=== PATIENT | male | born 1995 | race Caucasian/White ===

== ENCOUNTER 2016-10-17 23:05 | Observation (INO) | payer OTHER ==
[~2016-10-17] VITALS: Ht 167.6 cm; Wt 89.8 kg
[~2016-10-17 23:05] MED LIST: EP1A SC; LORA10TA7 PO; MULT-974 PO; PRD20T PO
--- OUTSIDE RECORDS SUMMARY | 2016-10-17 23:11 | XMS REPORT | Continuity of Care Document ---
Author Author [facility] Organization [facility] Address Unknown Phone Unavailable Care Team Providers Care Vehicle Body Sander Name Role Phone NO, LOCAL PHYSICIAN PCP Unavailable Insurance Providers Payer Name Policy Number Subscriber Name Relationship [facility] [id number] Denise Schwartz 18 Self / Same As Patient Advance Directives Directive Response Recorded Date/Time Advance Directives No 09/11/14 2:43am Health Care Power of Therapy Teacher No 09/11/14 2:43am Organ Donor Yes 09/11/14 2:43am Resuscitation Status Full Code 09/11/14 2:43am Chief Complaint and Reason for Visit Chief Complaint ANAPHYLAXIS W/ANGIOEDEMA & URTICARIA;NUT ALLERGY Reason for Visit Urticaria Angioedema Nut allergy Problems Medical Problems Problem Onset Date Status Urticaria Unknown Active Angioedema Unknown Active Nut allergy Unknown Active Medications Medication Dose Route Sig Days/Qty Instructions Order Date Discontinued Date Status Multivitamin 2 Tab PO DAILY 09/11/14 Active Epinephrine Hcl 0.3 Mg SC EVERY 15 MINUTES PRN DYSPNEA 1 Qty 09/11/14 Active Prednisone 20 Mg PO TWICE A DAY 3 Days 09/11/14 Active Loratadine 10 Mg PO DAILY 30 Qty 09/11/14 Active Social History Social History Problem Response Recorded Date/Time Alcohol Use Regular Use 09/11/2014 2:44am Recreational Drug Use No 09/11/2014 2:44am Recent Foreign Travel No 09/11/2014 2:48am Recent Infectious Disease Exposure No 09/11/2014 2:44am Hospitalization with Isolation Denies 09/11/2014 3:06pm Sexually Transmitted Disease No 09/11/2014 2:44am Smoking Status Never a Smoker 09/11/2014 2:45am Query Response Start Date Stop Date Smoking Status Never a Smoker Hospital Discharge Instructions No hospital discharge instructions. Plan of Care Discharge Date 09/11/14 1:35pm Disposition 30 STILL A PATIENT Instructions/Education Provided Anaphylaxis (GEN) Prescriptions See Medications Section Functional Status Query Response Date Recorded Comprehension Ability Understands Concepts September 11, 2014 12:00pm Allergies, Adverse Reactions, Alerts Allergen Type Severity Reaction Status Last Updated cashew Allergy Severe Active 09/11/14 lobster Allergy Severe Active 09/11/14 Immunizations No immunization records. Vital Signs Acute Vital Signs Vital Response Date/Time Temperature (Fahrenheit) 98.6 degrees F (97.6 - 99.5) Temperature (Calculated Celsius) 37.24735 degrees C (36.4 - 37.5) Temperature Source Temporal Pulse Rate (adult) 80 bpm (60 - 90) Pulse Rate (Adolescent 12-19yrs) 90 bpm (56 - 106) Respiratory Rate 8 bpm (12 - 24) O2 Sat by Pulse Oximetry 96 % (88 - 100) Respiratory Rate (Adolescent 12-19yrs) 15 bpm (15 - 20) Blood Pressure 106/59 mm Hg Blood Pressure Systolic (Adolescent 12-19yrs) 134 mm Hg (115 - 120) Pain Pain Intensity 0 Height (Feet) 5 feet Height (Inches) 6.00 inches Height (Calculated Centimeters) 167.754383 cm Weight (Pounds) 182 pounds Weight (Calculated Grams) 00590.812 gm Weight (Calculated Kilograms) 82.603320 kilograms Calculated BMI 29.37 Results Laboratory Results Test Name Result Units Flags Reference Collection Date/Time Result Date/ Time Comments White Blood Count 8.9 10^3/uL 4.3-11.0 09/11/2014 1:15am 09/11/2014 1: 27am Red Blood Count 5.28 10^6/uL 4.35-5.85 09/11/2014 1:15am 09/11/2014 1: 27am Hemoglobin 16.6 G/DL 13.3-17.7 09/11/2014 1:15am 09/11/2014 1:27am Hematocrit 46 % 40-54 09/11/2014 1:09/11/2014 1:27am Mean Corpuscular Volume 88 FL 80-99 09/11/2014 1:09/11/2014 1: 27am Mean Corpuscular Hemoglobin 31 PG 25-34 09/11/2014 1:09/11/2014 1: 27am Mean Corpuscular Hemoglobin Concent 36 G/DL 32-36 09/11/2014 1: 1:27am Red Cell Distribution Width 12.2 % 10.0-14.5 09/11/2014 1:2014 1:27am Platelet Count 245 10^3/uL 130-400 09/11/2014 1:09/11/2014 1:27am Mean Platelet Volume 10.5 FL H 7.4-10.4 09/11/2014 1:09/11/2014 1: 27am Neutrophils (%) (Auto) 54 % 42-75 09/11/2014 1:09/11/2014 1:27am Lymphocytes (%) (Auto) 34 % 12-44 09/11/2014 1:09/11/2014 1:27am Monocytes (%) (Auto) 11 % 0-12 09/11/2014 1:09/11/2014 1:27am Eosinophils (%) (Auto) 1 % 0-10 09/11/2014 1:09/11/2014 1:27am Basophils (%) (Auto) 0 % 0-10 09/11/2014 1:09/11/2014 1:27am Neutrophils # (Auto) 4.8 X 10^3 1.8-7.8 09/11/2014 1:09/11/2014 1: 27am Lymphocytes # (Auto) 3.0 X 10^3 1.0-4.0 09/11/2014 1:09/11/2014 1: 27am Monocytes # (Auto) 1.0 X 10^3 0.0-1.0 09/11/2014 1:09/11/2014 1: 27am Eosinophils # (Auto) 0.1 10^3/uL 0.0-0.3 09/11/2014 1:09/11/2014 1 :27am Basophils # (Auto) 0.0 10^3/uL 0.0-0.1 09/11/2014 1:1509/11/2014 1: 27am Sodium Level 137 MMOL/L 135-145 09/11/2014 1:1509/11/2014 1:43am Potassium Level 3.4 MMOL/L L 3.6-5.0 09/11/2014 1:1509/11/2014 1:43am Chloride Level 104 MMOL/L 98-107 09/11/2014 1:1509/11/2014 1:43am Carbon Dioxide Level 22 MMOL/L 21-32 09/11/2014 1:1509/11/2014 1: 43am Blood Urea Nitrogen 22 MG/DL H 7-18 09/11/2014 1:1509/11/2014 1:43am Creatinine 0.85 MG/DL 0.60-1.30 09/11/2014 1:1509/11/2014 1:43am BUN/Creatinine Ratio 26 09/11/2014 1:1509/11/2014 1:43am Estimat Glomerular Filtration Rate > 60 09/11/2014 1:152014 1:43am GFR INTERPRETIVE DATA UNITS FOR ESTIMATED GFR (eGFR): mL/min/1.73 M2 REFERENCE RANGE FOR ESTIMATED GFR (eGFR) eGFR NORMAL eGFR >60 MODERATELY DECREASED eGFR 30-59 SEVERLY DECREASED eGFR 15-29 KIDNEY FAILURE <15 (OR DIALYSIS) Glucose Level 125 MG/DL H 70-105 09/11/2014 1:1509/11/2014 1:43am Calcium Level 9.1 MG/DL 8.5-10.1 09/11/2014 1:1509/11/2014 1:43am Procedures No known history of procedures. Encounters Encounter Location Date/Time Discharged Inpatient Via [facility] 09/11/14 1:52am Recent Diagnosis Urticaria Angioedema Nut allergy
[2016-10-17] MEDS ORDERED: NS IV 1000 ML 1,000 ML IV ONE (23:17)
[2016-10-17 23:25] LABS: BILIRUBIN,URINE NEGATIVE (NEGATIVE); KETONES,URINE NEGATIVE (NEGATIVE); LEUKOCYTE ESTERASE ,URINE NEGATIVE (NEGATIVE); NITRITE,URINE NEGATIVE (NEGATIVE); PH,URINE 6 (5-9); PROTEIN,URINE NEGATIVE (NEGATIVE); UROBILINOGEN,URINE NORMAL (NORMAL)
[2016-10-17] MEDS ORDERED: LORazepam INJ 2 MG/ML (ATIVAN) VIAL ONE (23:30)
[2016-10-17] MEDS ORDERED: LORazepam INJ 2 MG/ML (ATIVAN) VIAL IVP ONE (23:30)
[2016-10-17 23:35] LABS: BASOPHILS % (AUTO) 0 % (0-10); EOSINOPHILS # (AUTO) 0.4 10^3/uL (0.0-0.3); EOSINOPHILS % (AUTO) 5 % (0-10); LYMPHOCYTES # (AUTO) 2.9 X 10^3 (1.0-4.0); LYMPHOCYTES % (AUTO) 38 % (12-44); MEAN CORPUSCULAR HEMOGLOBIN 31 PG (25-34); MEAN CORPUSCULAR HGB CONC 35 G/DL (32-36); MEAN CORPUSCULAR VOLUME 87 FL (80-99); MONOCYTES # (AUTO) 0.9 X 10^3 (0.0-1.0); MONOCYTES % (AUTO) 12 % (0-12); NEUTROPHILS # (AUTO) 3.5 X 10^3 (1.8-7.8); NEUTROPHILS % (AUTO) 45 % (42-75); PLATELET COUNT 245 10^3/uL (130-400); RED BLOOD COUNT 5.31 10^6/uL (4.35-5.85); RED CELL DISTRIBUTION WIDTH 12.9 % (10.0-14.5); WHITE BLOOD COUNT 7.6 10^3/uL (4.3-11.0)
[2016-10-17 23:44] LABS: ALANINE AMINOTRANSFERASE 56 U/L (0-55); ALBUMIN 4.9 G/DL (3.2-4.5); ANION GAP 18 MMOL/L (5-14); ASPARTATE AMINO TRANSFERASE 60 U/L (5-34); BILIRUBIN,TOTAL 0.5 MG/DL (0.1-1.0); BLOOD UREA NITROGEN 15 MG/DL (7-18); BUN/CREATININE RATIO 14; CALCIUM 9.8 MG/DL (8.5-10.1); CARBON DIOXIDE 19 MMOL/L (21-32); CHLORIDE 106 MMOL/L (98-107); CREATINE KINASE 1496 U/L (30-200); CREATININE SERUM 1.04 MG/DL (0.60-1.30); GFR ESTIMATED > 60; GLUCOSE 123 MG/DL (70-105); MAGNESIUM 2.4 MG/DL (1.8-2.4); POTASSIUM 4.2 MMOL/L (3.6-5.0); SODIUM 143 MMOL/L (135-145); TOTAL PROTEIN 7.3 G/DL (6.4-8.2)
[2016-10-17 23:45] LABS: ACETAMINOPHEN < 10 UG/ML (10-30); ALCOHOL < 10 MG/DL (<10)
[2016-10-18] VITALS (11 sets, daily range): BP systolic 91–110; BP diastolic 42–59
[2016-10-18 00:01] LABS: SQUAMOUS EPITHELIAL CELL,UR 0-2 /HPF
[2016-10-18 00:04] LABS: TROPONIN I < 0.30 NG/ML (<0.30)
--- NOTE | 2016-10-18 00:05 | ED Neurological Problem ---
General Chief Complaint: Neurological Problems Stated Complaint: POSS SEIZURES Nursing Triage Note: PERIODS OF GENERALIZED MUSCLE TWITCHING TODAY. NO LOC. PT DENIES MEDICATIONS/ DRUG USE. Nursing Sepsis Screen: No Definite Risk Source: patient, EMS History of Present Illness Time seen by provider: 23:13 Initial Comments PT ARRIVES VIA EMS FROM HOME--PT IS [employer] PT HAS BEEN HAVING MUSCLE TWITCHING AND CRAMPING AND SPASMS OF ENTIRE BODY SINCE AROUND 2200 TONIGHT STATES HE WAS STUDYING AND HIS VISION WAS GOING BLURRY OFF AND ON AND WAS "CUTTING OUT" OFF AND ON STATES THEN HIS LEFT LEG STARTED TWITCHING AND JERKING, THEN OTHER PARTS OF HIS BODY WOULD RANDOMLY DO THE SAME THING, THEN STATES HIS BODY STARTED CURVING INTO A ABREU SHAPE AND HE COULDN'T MOVE AND WAS "STUCK THERE" NO LOSS OF CONSCIOUSNESS--STATES HE IS AWAKE FOR THE EPISODES, BUT STATES HE "JUST REMEMBERS BITS" PT STATES IT OCCURRED SEVERAL TIMES AND HE COULD FEEL THEM COMING ON, AND AFTERWARD HE FEELS REALLY TIRED FOR A SHORT PERIOD OF TIME, AND THEN HE IS BACK TO NORMAL --JUST FEELS VERY TIRED. STATES ALL OF HIS JOINTS AND MUSCLES ACHE STATES HIS TOES AND FINGERS FEELS SLIGHTLY TINGLY NO INCONTINENCE NO FEVER OR RECENT ILLNESS NO VISION CHANGES NO CHEST PAIN , PALPITATIONS OR SHORTNESS OF BREATH NO NAUSEA/VOMITING NO DIZZINESS NO SIGNIFICANT STRESS OTHER THAN ON TUESDAY WAS HAVING SOME STRESS OVER HIS TRUCK AND EXPENSES IT WAS CAUSING. NO HISTORY OF SIMILAR PT DENIES ANY DRUG OR ALCOHOL USE PT STATES HE HAS BEEN TAKING A "PRE-WORK OUT SUPPLEMENT" FOR THE LAST 2-3 MONTHS , BUT HAS NOT TAKEN MORE THAN ADVISED ON THE LABEL STATES HE DID WORK OUT HARDER THAN NORMAL TODAY, OTHERWISE NO UNUSUAL ACTIVITY NO RECENT TRAUMA STATES HE ATE AT 2100 TONIGHT--[employer], [employer] AND [employer], [employer]. [employer] Allergies and Home Medications Allergies Uncoded Allergies: cashew (Allergy, Severe, 09/11/14) lobster (Allergy, Severe, 09/11/14) Home Medications Epinephrine Hcl 1 Mg/Ml Soln #1 0.3 MG SC Q15M PRN PRN DYSPNEA Prescribed by: IZA FELIX on 09/11/14 0808 Loratadine 10 Mg Tablet #30 10 MG PO DAILY Prescribed by: IZA FELIX on 09/11/14 08 Multivitamin 1 Each Tablet 2 TAB PO DAILY (Reported) Prednisone 20 Mg Tab 3Days 20 MG PO BID Prescribed by: IZA FELIX on 09/11/14 0808 Constitutional: see HPINo chills, No diaphoresis, No dizziness, No fever Eyes: No Symptoms Reported Ears, Nose, Mouth, Throat: no symptoms reported Respiratory: no symptoms reported Cardiovascular: no symptoms reported Gastrointestinal: no symptoms reported Genitourinary: no symptoms reported Musculoskeletal: see HPI Skin: no symptoms reported Psychiatric/Neurological: See HPI Endocrine: No Symptoms Reported Hematologic/Lymphatic: No Symptoms Reported Past Xgvdqvc-Qiadjk-Ieiwte Hx Patient Social History Alcohol Use: Rarely Uses Recreational Drug Use: No (DENIES ) Smoking Status: Never a Smoker 2nd Hand Smoke Exposure: No Recent Foreign Travel: No Contact w/Someone Who Travel: No Recent Infectious Disease Expo: No Recent Hopitalizations: No Immunizations Up To Date Tetanus Booster (TDap): Less than 5yrs PED Vaccines UTD: Yes Seasonal Allergies Seasonal Allergies: No Surgeries HX Surgeries: Yes (hernia) Surgeries: Abdominal Respiratory Hx Respiratory Disorders: No Cardiovascular Hx Cardiac Disorders: No Neurological Hx Neurological Disorders: No Reproductive System Hx Reproductive Disorders: No Sexually Transmitted Disease: No Genitourinary Hx Genitourinary Disorders: No Gastrointestinal Hx Gastrointestinal Disorders: Yes Gastrointestinal Disorders: Abdominal Hernia (S/P HERNIA REPAIR) Musculoskeletal Hx Musculoskeletal Disorders: No Endocrine Hx Endocrine Disorders: No HEENT HX ENT Disorders: No Cancer Hx Cancer: No Psychosocial Hx Psychiatric Problems: No Integumentary HX Skin/Integumentary Disorder: No Blood Transfusions Hx Blood Disorders: No Physical Exam Vital Signs Vital Sign - Last 12Hours 10/17/16 23:08 Temp 98.1 Pulse 119 Resp 12 B/P 106/62 Pulse Ox 99 O2 Delivery Room Air Capillary Refill : Less Than 3 Seconds General Appearance: WD/WN HEENT: PERRL/EOMI normal ENT inspection TMs normal pharynx normal Neck: non-tender full range of motion supple normal inspection Respiratory: chest non-tender normal breath sounds no respiratory distress no accessory muscle use Cardiovascular: regular rate, rhythm Peripheral Pulses: 2+ Dorsalis Pedis (R), 2+ Left Dors-Pedis (L), 2+ Radial Pulses (R), 2+ Radial Pulses (L) Gastrointestinal: normal bowel sounds non tender soft Back: normal inspection no CVA tenderness no vertebral tenderness Extremities: normal range of motion non-tender normal inspection no pedal edema no calf tenderness normal capillary refill Neurologic/Psychiatric: puff ironer II-XII nml as tested no motor/sensory deficits alert oriented x 3 other (DURING EXAM, PT BEGAN HAVING VERY BIZARRE, RANDOM JERKING AND TENSING OF ARMS, LEGS, HANDS, FEET--BUT PT AWAKE AND ALERT AND ABLE TO TALK DURING EPISODES AND REMAINS ORIENTED DURING EPISODES --LASTS FOR A FEW MINUTES AND THEN VERY BRIFLY WILL BE DROWSY AND CLOSE EYES, BUT ABLE TO ANSWER QUESTIONS, ) Crainal Nerves: normal hearing normal speech PERRL Motor/Sensory: no motor deficit no sensory deficit no pronator drift Reflexes: 3+ Bicep (R), 3+ Bicep (L), 3+ Knee (R), 3+ Knee (L) Skin: normal color warm/dry Progress/Results/Core Measures Results/Orders Lab Results Laboratory Tests Test 10/17/16 23:10 10/17/16 23:17 Range/Units Acetaminophen Level < 10 L 10-30 UG/ML Alanine Aminotransferase (ALT/SGPT) 56 H 0-55 U/L Albumin 4.9 H 3.2-4.5 G/DL Alkaline Phosphatase 68 40-136 U/L Anion Gap 18 H 5-14 MMOL/L Aspartate Amino Transf (AST/SGOT) 60 H 5-34 U/L BUN/Creatinine Ratio 14 Basophils # (Auto) 0.0 0.0-0.1 10^3/uL Basophils (%) (Auto) 0 0-10 % Blood Urea Nitrogen 15 7-18 MG/DL Calcium Level 9.8 8.5-10.1 MG/DL Carbon Dioxide Level 19 L 21-32 MMOL/L Chloride Level 106 98-107 MMOL/L Creatine Kinase MB 10.1 *H <6.6 NG/ML Creatinine 1.04 0.60-1.30 MG/DL Eosinophils # (Auto) 0.4 H 0.0-0.3 10^3/uL Eosinophils (%) (Auto) 5 0-10 % Estimat Glomerular Filtration Rate > 60 Glucose Level 123 H 70-105 MG/DL Hematocrit 46 40-54 % Hemoglobin 16.4 13.3-17.7 G/DL Lymphocytes # (Auto) 2.9 1.0-4.0 X 10^3 Lymphocytes (%) (Auto) 38 12-44 % Magnesium Level 2.4 1.8-2.4 MG/DL Mean Corpuscular Hemoglobin 31 25-34 PG Mean Corpuscular Hemoglobin Concent 35 32-36 G/DL Mean Corpuscular Volume 87 80-99 FL Mean Platelet Volume 11.0 H 7.4-10.4 FL Monocytes # (Auto) 0.9 0.0-1.0 X 10^3 Monocytes (%) (Auto) 12 0-12 % Neutrophils # (Auto) 3.5 1.8-7.8 X 10^3 Neutrophils (%) (Auto) 45 42-75 % Platelet Count 245 130-400 10^3/uL Potassium Level 4.2 3.6-5.0 MMOL/L Red Blood Count 5.31 4.35-5.85 10^6/uL Red Cell Distribution Width 12.9 10.0-14.5 % Serum Alcohol < 10 <10 MG/DL Sodium Level 143 135-145 MMOL/L TSH Grandin Testing 1.23 0.35-4.94 UIU/ML Total Bilirubin 0.5 0.1-1.0 MG/DL Total Creatine Kinase 1496 H 30-200 U/L Total Protein 7.3 6.4-8.2 G/DL Troponin I < 0.30 <0.30 NG/ML White Blood Count 7.6 4.3-11.0 10^3/uL Ur Tricyclic Antidepressants Screen NEGATIVE NEGATIVE Urine Amphetamines Screen NEGATIVE NEGATIVE Urine Bacteria NEGATIVE /HPF Urine Barbiturates Screen NEGATIVE NEGATIVE Urine Benzodiazepines Screen NEGATIVE NEGATIVE Urine Bilirubin NEGATIVE NEGATIVE Urine Cannabinoids Screen POSITIVE H NEGATIVE Urine Casts NONE /LPF Urine Clarity CLEAR Urine Cocaine Screen NEGATIVE NEGATIVE Urine Color YELLOW Urine Crystals NONE /LPF Urine Culture Indicated NO Urine Glucose (UA) NEGATIVE NEGATIVE Urine Ketones NEGATIVE NEGATIVE Urine Leukocyte Esterase NEGATIVE NEGATIVE Urine Methadone Screen NEGATIVE NEGATIVE Urine Methamphetamines Screen NEGATIVE NEGATIVE Urine Mucus SMALL H /LPF Urine Nitrite NEGATIVE NEGATIVE Urine Opiates Screen NEGATIVE NEGATIVE Urine Oxycodone Screen NEGATIVE NEGATIVE Urine Phencyclidine Screen NEGATIVE NEGATIVE Urine Propoxyphene Screen NEGATIVE NEGATIVE Urine Protein NEGATIVE NEGATIVE Urine RBC NONE /HPF Urine RBC (Auto) NEGATIVE NEGATIVE Urine Specific [place] 1.020 1.016-1.022 Urine Squamous Epithelial Cells 0-2 /HPF Urine Urobilinogen NORMAL NORMAL MG/DL Urine WBC NONE /HPF Urine pH 6 5-9 My Orders Orders-KARI,VIPIN Dixie DO Saline Lock/Iv-Start (10/17/16 23:17) Monitor-Rhythm Ecg Trace Only (10/17/16 23:17) Ct Head Wo (10/17/16 23:17) Acetaminophen (10/17/16 23:17) Alcohol (10/17/16 23:17) Cbc With Automated Diff (10/17/16 23:17) Comprehensive Metabolic Panel (10/17/16 23:17) Creatine Kinase (10/17/16 23:17) Creatine Kinase Mb (10/17/16 23:17) Drug Screen Stat (Urine) (10/17/16 23:17) Magnesium (10/17/16 23:17) Thyroid Analyzer (10/17/16 23:17) Troponin I (10/17/16 23:17) Ua Culture If Indicated (10/17/16 23:17) Saline Lock/Iv-Start (10/17/16 23:17) Ns Iv 1000 Ml (Sodium Chloride 0.9%) (10/17/16 23:17) Lorazepam Injection (Ativan Injection) (10/17/16 23:30) Lorazepam Injection (Ativan Injection) (10/17/16 23:30) Medications Given in ED Current Medications Medications Dose Ordered Sig/Brendan Route Start Time Stop Time Status Last Admin Dose Admin Lorazepam 1 mg ONCE ONCE IVP 10/17/16 23:30 10/17/16 23:31 DC 10/17/16 23:33 1 MG Sodium Chloride 1,000 ml @ 0 mls/hr Q0M ONCE IV 10/17/16 23:17 10/17/16 23:19 DC 10/17/16 23:33 0 MLS/HR Vital Signs/I&O Vital Sign - Last 12Hours 10/17/16 23:08 Temp 98.1 Pulse 119 Resp 12 B/P 106/62 Pulse Ox 99 O2 Delivery Room Air Intake and Output 10/18/16 00:00 Intake Total 1000 ml Balance 1000 ml Blood Pressure Mean: 77 Progress Note : Progress Note PT HAD MULTIPLE EPISODES OF THIS ACTIVITY, GIVEN ATIVAN AND PT HAD NO FURTHER EPISODES Diagnostic Imaging Comments CT HEAD--NO ACUTE PROCESS, PER RADIOLOGIST REPORT @ 0021 Reviewed: Reviewed by Me Departure Communication Family Conversation DISCUSSED PT'S CONDITION WITH PT'S MOTHER VIA PHONE--LIVES IN [place] AND WILL BE COMING HERE IN A FEW HOURS. Progress Notes 0020--SPOKE WITH DR. JACOBSON, ACCEPTS PT FOR ADMIT Impression Impression: Primary Impression: NEW ONSET OF SEIZURE LIKE ACTIVITY Disposition: ADMITTED INPATIENT Condition: Improved Decision to Admit Reason: Admit from ER (General) Decision to Admit/Date: Oct 18, 2016 Time/Decision to Admit Time: 00:20 Departure-Patient Inst. Referrals: [facility] (PCP/Family) Primary Care Physician VIPIN PIERCE DO Oct 18, 2016 00:05
[2016-10-18] MEDS ORDERED: D5 NS 1000 ML IV SOLUTION 1,000 ML IV ONE (01:04)
[2016-10-18] MEDS ORDERED: LORazepam INJ 2 MG/ML (ATIVAN) VIAL IV PRN (03:00)
[2016-10-18] MEDS: D5 NS 1000 ML IV SOLUTION 1,000 ML IV SCH ×2 (03:00→09:55)
[2016-10-18 04:22] LABS: BASOPHILS % (AUTO) 0 % (0-10); EOSINOPHILS # (AUTO) 0.2 10^3/uL (0.0-0.3); EOSINOPHILS % (AUTO) 4 % (0-10); LYMPHOCYTES # (AUTO) 1.4 X 10^3 (1.0-4.0); LYMPHOCYTES % (AUTO) 27 % (12-44); MEAN CORPUSCULAR HEMOGLOBIN 31 PG (25-34); MEAN CORPUSCULAR HGB CONC 35 G/DL (32-36); MEAN CORPUSCULAR VOLUME 88 FL (80-99); MONOCYTES # (AUTO) 0.6 X 10^3 (0.0-1.0); MONOCYTES % (AUTO) 10 % (0-12); NEUTROPHILS # (AUTO) 3.1 X 10^3 (1.8-7.8); NEUTROPHILS % (AUTO) 58 % (42-75); PLATELET COUNT 208 10^3/uL (130-400); RED CELL DISTRIBUTION WIDTH 12.8 % (10.0-14.5); WHITE BLOOD COUNT 5.4 10^3/uL (4.3-11.0)
[2016-10-18 04:43] LABS: ALANINE AMINOTRANSFERASE 44 U/L (0-55); ALBUMIN 3.8 G/DL (3.2-4.5); ANION GAP 10 MMOL/L (5-14); ASPARTATE AMINO TRANSFERASE 44 U/L (5-34); BILIRUBIN,TOTAL 0.4 MG/DL (0.1-1.0); BLOOD UREA NITROGEN 13 MG/DL (7-18); BUN/CREATININE RATIO 16; CALCIUM 8.4 MG/DL (8.5-10.1); CARBON DIOXIDE 21 MMOL/L (21-32); CHLORIDE 110 MMOL/L (98-107); CREATINE KINASE 1043 U/L (30-200); CREATININE SERUM 0.82 MG/DL (0.60-1.30); GFR ESTIMATED > 60; GLUCOSE 126 MG/DL (70-105); MAGNESIUM 2.2 MG/DL (1.8-2.4); PHOSPHORUS 4.3 MG/DL (2.3-4.7); POTASSIUM 3.7 MMOL/L (3.6-5.0); SODIUM 141 MMOL/L (135-145); TOTAL PROTEIN 5.5 G/DL (6.4-8.2)
--- NOTE | 2016-10-18 08:08 | Diagnostic Imaging Report ---
PROCEDURE: CT head without contrast. TECHNIQUE: Multiple contiguous axial images were obtained through the brain without the use of intravenous contrast. INDICATION: Abnormal movement. Seizure-like activity. FINDINGS: There is no intracranial hemorrhage, edema or mass effect. The brain parenchyma and martinez-white matter differentiation is preserved. There is no hydrocephalus. No extra-axial fluid collection. The calvarium appears unremarkable. There is slight mucosal thickening in the left ethmoidal air cells. IMPRESSION: No intracranial abnormality. This reading agrees with the [facility] report. Dictated by: Dictated on workstation # [id number]
--- NOTE | 2016-10-18 08:31 | History & Physicial ---
HPI History of Present Illness: HPI/Chief Complaint this is a 21-year-old white male who presents to the emergency room with severe muscle cramping and spasming and twitching. He had been taking M-4, a workout supplement. When he worked out more than usual. He thinks he was hydrated enough. He has never had anything like this before. He is feeling much better this morning and is very sleepy. Source: patient Exam Limitations: no limitations Date Seen 10/18/16 Attending Physician Omaira Bee MD PCP [place] Referring Physician Date of Admission Oct 18, 2016 at 00:31 Home Medications & Allergies Home Medications Reviewed patient Home Medication Reconciliation Form Allergies Uncoded Allergies: cashew (Allergy, Severe, 09/11/14) lobster (Allergy, Severe, 09/11/14) Past Fatqawu-Zqlvzl-Xdogiz Hx Patient Social History Marrital Status: single Employed/Student: student, full-time Alcohol Use: Rarely Uses Recreational Drug Use: No (DENIES ) Smoking Status: Never a Smoker 2nd Hand Smoke Exposure: No Physical Abuse Screen: No Sexual Abuse: No Recent Foreign Travel: No Contact w/other who traveled: No Recent Hopitalizations: No Recent Infectious Disease Expo: No Immunizations Up To Date Tetanus Booster (TDap): Less than 5yrs Seasonal Allergies Seasonal Allergies: No Surgeries HX Surgeries: Yes (hernia) Surgeries: Abdominal Respiratory Hx Respiratory Disorders: No Cardiovascular Hx Cardiovascular Disorders: No Neurological Hx Neurological Disorders: No Reproductive System Hx Reproductive Disorders: No Sexually Transmitted Disease: No Genitourinary Hx Genitourinary Disorders: No Gastrointestinal Hx Gastrointestinal Disorders: Yes Gastrointestinal Disorders: Abdominal Hernia Musculoskeletal Hx Musculoskeletal Disorders: No Endocrine Hx Endocrine Disorders: No HEENT HX ENT Disorders: No Cancer Hx Cancer: No Psychosocial Hx Psychiatric Problems: No Integumentary HX Skin/Integumentary Disorder: No Blood Transfusions Hx Blood Disorders: No Family Medical History Significant Family History: No Pertinent Family Hx Family Hx: Review of Systems Constitutional: see HPI weakness EENTM: no symptoms reported Respiratory: no symptoms reported Cardiovascular: no symptoms reported Gastrointestinal: no symptoms reported Genitourinary: no symptoms reported Musculoskeletal: muscle pain muscle cramps muscle twitching Skin: no symptoms reported Psychiatric/Neurological: Numbness Paresthesia Physical Exam Physical Exam Vital Signs Vital Sign - Last 12Hours 2/26/17 23:08 Temp 98.1 Pulse 119 Resp 12 B/P 106/62 Pulse Ox 99 O2 Delivery Room Air Capillary Refill : Less Than 3 Seconds General Appearance: No Apparent Distress Other (sleepy) HEENT: PERRL/EOMI Neck: Full Range of Motion Respiratory: Lungs Clear Cardiovascular: Regular Rate, Rhythm No Gallop Gastrointestinal: Normal Bowel Sounds Non Tender Soft Rectal: Deferred Back: Normal Inspection Extremity: No Pedal Edema Other (intermittent quadriceps muscles) Neurologic/Psychiatric: Alert Oriented x3 No Motor/Sensory Deficits Other ( sleepy) Skin: Normal Color Warm/Dry Assessment/Plan Admission Diagnosis 1. elevated CPK secondary to supplements mild dehydration and muscle breakdown. knee function is currently normal we'll recheck this. Patient has been hydrated overnight 2. muscle cramps and twitching secondary to number 1 no actual seizure activity 3. Elevated liver function tests improving Will encourage patient to avoid supplements in the future improve his hydration will discharge this afternoon as he appears to be stable Clinical Quality Measures DVT/VTE Risk/Contraindication: Risk Factor Score Per Nursin RFS Level Per Nursing on Admit: 1=Low/No VTE PPX OMAIRA BEE MD Oct 18, 2016 08:30
--- NOTE | 2016-10-18 08:42 | Diagnostic Imaging Report ---
INDICATION: New onset seizure activity. Comparison made with rib series performed August 2011. Given AP technique and a lordotic orientation, cardiomediastinal contours not grossly changed. The lungs clear. No failure, effusion, or pneumothorax. IMPRESSION: Given differing technique, no interval change or acute-appearing abnormality. Dictated by: Dictated on workstation # [id number]
[2016-10-18] MEDS ORDERED: CATHETER FLUSH 10 ML SYR IV PRN (13:15)
--- NOTE | 2016-10-19 08:44 | Discharge Summary ---
Diagnosis/Chief Complaint Date of Admission Oct 18, 2016 at 12:31 am Date of Discharge Oct 18, 2016 at 3:00 pm Discharge Date: Oct 18, 2016 Discharge Time: 1100 Admission Diagnosis 1. elevated CPK secondary to supplements mild dehydration and muscle breakdown. renal function is currently normal we'll recheck this. Patient has been hydrated overnight 2. muscle cramps and twitching secondary to number 1 no actual seizure activity 3. Elevated liver function tests improving Will encourage patient to avoid supplements in the future improve his hydration will discharge this afternoon as he appears to be stable Discharge Diagnosis Simple partial seizures dehydration Rhabdomyolysis Reason Hospital Visit/Course this is a 21-year-old white male who presents to the emergency room with severe muscle cramping and spasming and twitching. He had been taking M-4, a workout supplement. When he worked out more than usual. He thinks he was hydrated enough. He has never had anything like this before. He is feeling much better this morning and is very sleepy. Discharge Summary Procedures CT head Discharge Physical Examination Allergies: Uncoded Allergies: cashew (Allergy, Severe, 09/11/14) lobster (Allergy, Severe, 09/11/14) Vitals & I&Os Vital Signs Date Time Temp Pulse Resp B/P Pulse Ox O2 Delivery O2 Flow Rate FiO2 10/18/16 14:50 89 16 110/59 99 10/18/16 12:21 98.5 Room Air General Appearance: Alert, Oriented X3, Cooperative HEENT: Atraumatic Respiratory: Clear to Auscultation Cardiovascular: Regular Rate, Normal S1, Normal S2 Abdominal: Normal Bowel Sounds, Soft Extremities: No Edema, Normal Pulses Skin: No Rashes Neuro: Normal Gait, Normal Speech, Strength at 5/5 X4 Ext Psych/Mental Status: Mental Status NL, Other (has several episodes of 20-30 second shaking on right leg with deviation of head to left - during these episodes pat is unable to speak but says he can hear- feels tired after these spells) Hospital Course Pt. is admitted for observation and hydration - CPK was returning to normal . Parents came and wished to take son home to [place] to see family doctor and possible neurology consult to obtain EEG and further evaluation. I discussed the possibility of these being focal seizures - the possibility of generalization of the seizure activity , if that's what this was, being remote but possible. At the time of d/c he is stable and eating and drinking normally. He is d/c in their care. I gave them my business card for further communication. Discharge Home Medications: Active Scripts Active Loratadine 10 Mg Tablet 10 Mg PO DAILY Adrenalin (Epinephrine Hcl) 1 Mg/Ml Soln 0.3 Mg SC Q15M PRN Condition at discharge stable Instructions to patient/family Please see [facility]onic discharge instructions given to patient. Clinical Quality Measures DVT/VTE Risk/Contraindication: Risk Factor Score Per Nursin RFS Level Per Nursing on Admit: 1=Low/No VTE PPX SHANNAN BEE MD Oct 19, 2016 8:44 am
== END 2016-10-18 08:32 | disposition home or self-care (01) ==
LOC: EDUNIT# 23:05 → ER 23:07 → UNDOADMOB 10-18 00:31 → ICU 10-18 00:31 → UNDODISOB 10-18 15:00
PROVIDERS: ADMIT Internal Medicine; ATTEND Internal Medicine
DX: E86.0 Dehydration (principal); R74.8 Abnormal levels of other serum enzymes; R79.89 Other specified abnormal findings of blood chemistry; T50.905A Adverse effect of unspecified drugs, medicaments and biological substances, initial encounter
CPT/HCPCS: 36415; 70450; 71010; 80053; 80306; 80320; 80329; 81000; 82550; 82553; 83735; 84100; 84443; 84484; 85025; 87081; 93041; 96374; G0378

== ENCOUNTER 2016-11-20 17:45 | Emergency (ER) | payer OTHER ==
[~2016-11-20] VITALS: Ht 167.6 cm; Wt 90.7 kg
--- NOTE | 2016-11-20 18:10 | Diagnostic Imaging Report ---
PROCEDURE: CT head without contrast. TECHNIQUE: Multiple contiguous axial images were obtained through the brain without the use of intravenous contrast. INDICATION: Head trauma. FINDINGS: The ventricles are normal in size, shape and position. There are no masses or hemorrhages. There are no extra-axial fluid collections. IMPRESSION: Negative CT head. Dictated by: Dictated on workstation # [id number]
--- NOTE | 2016-11-20 18:24 | ED Head Injury ---
General Chief Complaint: Head/Cervical Problems Stated Complaint: HEAD INJ Nursing Triage Note: PT TO ED 7 W/ C/O COKER ONSET AFTER PLAYING FOOTBALL TODAY ET HITTING HIS HEAD WHEN HE HIT ANOTHER PLAYER. DENIES LOC. C/O SENSITIVITY TO LIGHT History of Present Illness Time seen by provider: 17:55 Initial Comments Initial evaluation for head injury after playing football today. He hit his head on another player, denies loss of consciousness. No medications since injury, complains of headache. Denies loss of consciousness at the time of the injury. Occurred: just prior to arrival Severity: mild Location: frontal Method of Injury: direct blow, sports injury Loss of Consciousness: no loss of consciousness Associated Systoms: Denies Symptoms Allergies and Home Medications Allergies Uncoded Allergies: cashew (Allergy, Severe, 09/11/14) lobster (Allergy, Severe, 09/11/14) Home Medications Epinephrine Hcl 1 Mg/Ml Soln, 0.3 MG SC Q15M PRN for DYSPNEA, #1 Prescribed by: IZA FELIX on 09/11/14 0808 Loratadine 10 Mg Tablet, 10 MG PO DAILY, #30 Prescribed by: IZA FELIX on 09/11/14 0808 Constitutional: no symptoms reported, see HPI Eyes: See HPI, Photophobia Ears, Nose, Mouth, Throat: no symptoms reported, see HPI Respiratory: no symptoms reported, see HPI Cardiovascular: no symptoms reported, see HPI Gastrointestinal: no symptoms reported, see HPI, No nausea, No vomiting Genitourinary: no symptoms reported, see HPI Musculoskeletal: no symptoms reported, see HPI Skin: no symptoms reported, see HPI Psychiatric/Neurological: See HPI, Headache Endocrine: No Symptoms Reported, See HPI Hematologic/Lymphatic: No Symptoms Reported, See HPI All Other Systems Reviewed Negative Unless Noted: Yes Past Vbyprhv-Btxiwm-Vzenys Hx Patient Social History Alcohol Use: Denies Use Recreational Drug Use: No Smoking Status: Never a Smoker 2nd Hand Smoke Exposure: No Recent Foreign Travel: No Contact w/Someone Who Travel: No Recent Infectious Disease Expo: No Recent Hopitalizations: No Immunizations Up To Date Tetanus Booster (TDap): Less than 5yrs PED Vaccines UTD: Yes Seasonal Allergies Seasonal Allergies: No Surgeries HX Surgeries: Yes (hernia, Cyst removal, breast reduction) Surgeries: Abdominal Respiratory Hx Respiratory Disorders: No Cardiovascular Hx Cardiac Disorders: No Neurological Hx Neurological Disorders: No Reproductive System Hx Reproductive Disorders: No Sexually Transmitted Disease: No Genitourinary Hx Genitourinary Disorders: No Gastrointestinal Hx Gastrointestinal Disorders: Yes Gastrointestinal Disorders: Abdominal Hernia Musculoskeletal Hx Musculoskeletal Disorders: No Endocrine Hx Endocrine Disorders: No HEENT HX ENT Disorders: No Cancer Hx Cancer: No Psychosocial Hx Psychiatric Problems: No Integumentary HX Skin/Integumentary Disorder: No Blood Transfusions Hx Blood Disorders: No Reviewed Nursing Assessment Reviewed/Agree w Nursing PMH: Yes Family Medical History Significant Family History: No Pertinent Family Hx Family Medial History: Physical Exam Vital Signs Vital Sign - Last 12Hours 11/20/16 17:48 Temp 96.9 Pulse 77 Resp 20 B/P (MAP) 120/73 Pulse Ox 99 O2 Delivery Room Air Capillary Refill : Less Than 3 Seconds General Appearance: WD/WN, no apparent distress HEENT: PERRL/EOMI, normal ENT inspection, TMs normal, pharynx normal, photophobia Neck: non-tender, full range of motion, supple, normal inspection Cardiovascular: normal peripheral pulses, regular rate, rhythm, no edema, no murmur, No JVD Respiratory: chest non-tender, lungs clear, normal breath sounds, no respiratory distress, no accessory muscle use Gastrointestinal: normal bowel sounds, non tender, soft, no organomegaly, no pulsatile mass Back: normal inspection, no CVA tenderness, no vertebral tenderness Extremities: normal range of motion, non-tender, normal inspection, no pedal edema, no calf tenderness, normal capillary refill Psychiatric: alert, oriented x 3 Crainal Nerves: normal hearing, normal speech, PERRL Coordination/Gait: normal finger to nose, normal gait, negative Romberg's sign Motor/Sensory: no motor deficit, no sensory deficit, no pronator drift Skin: normal color, warm/dry Lymphatic: no adenopathy Recall of 3 words intact immediately at 5 minutes and it 10 minutes. Nabil Coma Score Best Eye Response: (4) Open Spontaneously Best Verbal Response: (5) Oriented Best Motor Response: (6) Obeys Commands Hooper Total: 15 Progress/Results/Core Measures Results/Orders My Orders Orders - ANDREEA HUERTA Ct Head Wo (11/20/16 17:53) Acetaminophen Tablet/Caplet (Tylenol T (11/20/16 18:27) Vital Signs/I&O Vital Sign - Last 12Hours 11/20/16 11/20/16 17:48 18:53 Temp 96.9 Pulse 77 0 Resp 20 0 B/P (MAP) 120/73 Pulse Ox 99 0 O2 Delivery Room Air Blood Pressure Mean: 89 Progress Note : Time: 17:55 Progress Note Initial evaluation completed, recommended CT head will reevaluate after the study. 1814 CT results reviewed with patient no acute abnormalities noted. Exam essentially normal. Tylenol 650 mg by mouth for headache. 1839 patient denies any new complaints. Discussed in length brain rest and healing from a concussion. He verbalized understanding. Diagnostic Imaging Diagonstic Imaging: CT Plain Films/CT/US/NM/MRI: head Comments NAME: DENISE SCHWARTZ [facility] REC#: [id number] PT STATUS: REG ER : 1995 PHYSICIAN: ANDREEA HUERTA ADMIT DATE: 11/20/16/ER Signed Date of Exam: 11/20/16 CT HEAD WO PROCEDURE: CT head without contrast. TECHNIQUE: Multiple contiguous axial images were obtained through the brain without the use of intravenous contrast. INDICATION: Head trauma. FINDINGS: The ventricles are normal in size, shape and position. There are no masses or hemorrhages. There are no extra-axial fluid collections. IMPRESSION: Negative CT head. Dictated by: Dictated on workstation # [id number] Dict: 11/20/161802 Trans: 11/20/161808 [id number] Interpreted by: JANNET WILKES Electronically signed by:JANNET WILKES 11/20/161808 Departure Impression Impression: Primary Impression: Concussion without loss of consciousness Qualified Codes: S06.0X0A - Concussion without loss of consciousness, initial encounter Disposition: HOME, SELF-CARE Condition: Stable Departure-Patient Inst. Decision time for Depature: 18:15 Referrals: [facility] (PCP/Family) Primary Care Physician Patient Instructions: Concussion, Adult (DC) Add. Discharge Instructions: All discharge instructions reviewed with patient and/or family. Voiced understanding. Brain rest: Limit use of phone, computers, TV, and reading. Avoid activities that cause headaches or cause discomfort. Return to emergency department if symptoms worsen, headache, nausea and vomiting , or new complaints. No contact activities or exertion. Follow-up at [facility] in 3-4 days, sooner if symptoms make returning to classes for difficult. Work/School Note: School/Childcare Release Date Seen in the Emergency Department: Nov 20, 2016 Time Dismissed from Emergency Department: 19:00 Return to School: Nov 22, 2016 Restrictions: Need Release from Doctor Other Restrictions Listed Below: No contact activities, brain rest, school as tolerated Copy Copies To 1: SHANNAN BEE MD, AMY ARNP Nov 20, 2016 18:24
[2016-11-20] MEDS ORDERED: ACETAMINOPHEN 325 MG TABLET/CAPLET (TYLENOL) PO STA (18:27)
[2016-11-20 18:53] VITALS: BP 0/0
--- OUTSIDE RECORDS SUMMARY | 2016-12-14 09:38 | XMS REPORT | Continuity of Care Document ---
Author Author [facility] Organization [facility] Address Unknown Phone Unavailable Allergies Active Description Code Type Severity Reaction Onset Reported/Identified Relationship to Patient Clinical Status Yes cashew danielew Severe N/A 09/11/2014 Yes coreen angela Severe N/A 09/11/2014 Medications Problems Date Dx Coded Attending Type Code Diagnosis Diagnosed By 09/11/2014 ISIDRO CHERY, IZA Green Ot 995.64 05/24/2015 AINSLEY CHERY, AMY Fuller Ot F17.210 05/24/2015 AMY SCHMITZ MD Ot Z91.018 10/18/2016 SHANNAN BEE MD Ot E86.0 DEHYDRATION 10/18/2016 SHANNAN BEE MD Ot R74.8 ABNORMAL LEVELS OF OTHER SERUM ENZYMES 10/18/2016 SHANNAN BEE MD Ot R79.89 OTHER SPECIFIED ABNORMAL FINDINGS OF BLO 10/18/2016 SHANNAN BEE MD Ot T50.905A ADVERSE EFFECT OF UNSP DRUG/MEDS/ BIOL MAXWELL 11/22/2016 ANDREEA HUERTA Ot S06.0X0A CONCUSSION WITHOUT LOSS OF CONSCIOUSNESS 11/22/2016 ANDREEA HUERTA Ot S09.90XA UNSPECIFIED INJURY OF HEAD, INITIAL ENCO 11/22/2016 ANDREEA HUERTA Ot W03.XXXA OTH FALL SAME LEV DUE TO COLLISION W ANO 11/22/2016 ANDREEA HUERTA Ot Y93.61 ACTIVITY, [place] [employer] 11/22/2016 ANDREEA HUERTA Ot Y99.8 OTHER EXTERNAL CAUSE STATUS Procedures Results Test Result Range Comprehensive metabolic panel - 10/17/16 23:10 Serum or plasma sodium measurement (moles/volume) 143 mmol/ L 135-145 Serum or plasma potassium measurement (moles/volume) 4.2 mmol/L 3.6-5.0 Serum or plasma chloride measurement (moles/volume) 106 mmol /L 98-107 Carbon dioxide 19 mmol/L 21-32 Serum or plasma anion gap determination (moles/volume) 18 mmol/L 5-14 Serum or plasma urea nitrogen measurement (mass/volume) 15 mg/dL 7-18 Serum or plasma creatinine measurement (mass/volume) 1.04 mg /dL 0.60-1.30 Serum or plasma urea nitrogen/creatinine mass ratio 14 NRG Serum or plasma creatinine measurement with calculation of estimated glomerular filtration rate > NRG Serum or plasma glucose measurement (mass/volume) 123 mg/dL 70-105 Serum or plasma calcium measurement (mass/volume) 9.8 mg/dL 8.5-10.1 Serum or plasma total bilirubin measurement (mass/volume) 0.5 mg/dL 0.1-1.0 Serum or plasma alkaline phosphatase measurement (enzymatic activity/volume) 68 U/L 40-136 Serum or plasma aspartate aminotransferase measurement (enzymatic activity/ volume) 60 U/L 5-34 Serum or plasma alanine aminotransferase measurement (enzymatic activity/volume ) 56 U/L 0-55 Serum or plasma protein measurement (mass/volume) 7.3 g/dL 6.4-8.2 Serum or plasma albumin measurement (mass/volume) 4.9 g/dL 3.2-4.5 Magnesium - 10/17/16 23:10 Magnesium 2.4 mg/dL 1.8-2.4 Serum or plasma creatine kinase measurement (enzymatic activity/volume) - 10/17 23:10 Serum or plasma creatine kinase measurement (enzymatic activity/volume) 1496 U/L 30-200 Serum or plasma creatine kinase MB measurement (enzymatic activity/volume) - 23:10 Serum or plasma creatine kinase MB measurement (enzymatic activity/volume) 10.1 ng/mL <6.6 Serum or plasma troponin i.cardiac measurement (mass/volume) - 10/17/16 23:10 Serum or plasma troponin i.cardiac measurement (mass/volume) < ng/mL <0.30 Serum or plasma thyrotropin measurement by detection limit <=0.05 miu/l (units/ volume) - 10/17/16 23:10 Serum or plasma thyrotropin measurement by detection limit <=0.05 miu/l (units/ volume) 1.23 u[iU]/mL 0.35-4.94 Serum or plasma acetaminophen measurement (mass/volume) - 10/17/16 23:10 Serum or plasma acetaminophen measurement (mass/volume) < ug /mL 10-30 Serum or plasma ethanol measurement (mass/volume) - 10/17/16 23:10 Serum or plasma ethanol measurement (mass/volume) < mg/dL <10 Complete blood count (CBC) with automated white blood cell (WBC) differential - 10/17/16 23:10 Blood leukocytes automated count (number/volume) 7.6 10*3/ uL 4.3-11.0 Blood erythrocytes automated count (number/volume) 5.31 10*6 /uL 4.35-5.85 Venous blood hemoglobin measurement (mass/volume) 16.4 g/dL 13.3-17.7 Blood hematocrit (volume fraction) 46 % 40-54 Automated erythrocyte mean corpuscular volume 87 [foz_us] 80-99 Automated erythrocyte mean corpuscular hemoglobin (mass per erythrocyte) 31 pg 25-34 Automated erythrocyte mean corpuscular hemoglobin concentration measurement ( mass/volume) 35 g/dL 32-36 Automated erythrocyte distribution width ratio 12.9 % 10.0-14.5 Automated blood platelet count (count/volume) 245 10*3/uL 130-400 Automated blood platelet mean volume measurement 11.0 [foz_ us] 7.4-10.4 Automated blood neutrophils/100 leukocytes 45 % 42-75 Automated blood lymphocytes/100 leukocytes 38 % 12-44 Blood monocytes/100 leukocytes 12 % 0-12 Automated blood eosinophils/100 leukocytes 5 % 0-10 Automated blood basophils/100 leukocytes 0 % 0-10 Blood neutrophils automated count (number/volume) 3.5 10*3 1.8-7.8 Blood lymphocytes automated count (number/volume) 2.9 10*3 1.0-4.0 Blood monocytes automated count (number/volume) 0.9 10*3 0.0-1.0 Automated eosinophil count 0.4 10*3/uL 0.0-0.3 Automated blood basophil count (count/volume) 0.0 10*3/uL 0.0-0.1 Urine drug screening test - 10/17/16 23:17 Urine phencyclidine detection by screening method NEGATIVE NEGATIVE Urine benzodiazepines detection by screening method NEGATIVE NEGATIVE Urine cocaine detection NEGATIVE NEGATIVE Urine amphetamines detection by screening method NEGATIVE NEGATIVE Urine methamphetamine detection by screening method NEGATIVE NEGATIVE Urine cannabinoids detection by screening method POSITIVE NEGATIVE Urine opiates detection by screening method NEGATIVE NEGATIVE Urine barbiturates detection NEGATIVE NEGATIVE Screening urine tricyclic antidepressants detection NEGATIVE NEGATIVE Urine methadone detection by screening method NEGATIVE NEGATIVE Urine oxycodone detection NEGATIVE NEGATIVE Urine propoxyphene detection NEGATIVE NEGATIVE Complete urinalysis with reflex to culture - 10/17/16 23:17 Urine color determination YELLOW NRG Urine clarity determination CLEAR NRG Urine pH measurement by test strip 6 5- 9 Specific gravity of urine by test strip 1.020 1.016-1.022 Urine protein assay by test strip, semi-quantitative NEGATIVE NEGATIVE Urine glucose detection by automated test strip NEGATIVE NEGATIVE Erythrocytes detection in urine sediment by light microscopy NEGATIVE NEGATIVE Urine ketones detection by automated test strip NEGATIVE NEGATIVE Urine nitrite detection by test strip NEGATIVE NEGATIVE Urine total bilirubin detection by test strip NEGATIVE NEGATIVE Urine urobilinogen measurement by automated test strip (mass/volume) NORMAL NORMAL Urine leukocyte esterase detection by dipstick NEGATIVE NEGATIVE Automated urine sediment erythrocyte count by microscopy (number/high power field) NONE NRG Automated urine sediment leukocyte count by microscopy (number/high power field ) NONE NRG Bacteria detection in urine sediment by light microscopy NEGATIVE NRG Squamous epithelial cells detection in urine sediment by light microscopy 0-2 NRG Crystals detection in urine sediment by light microscopy NONE NRG Casts detection in urine sediment by light microscopy NONE NRG Mucus detection in urine sediment by light microscopy SMALL NRG Complete urinalysis with reflex to culture NO NRG Methicillin resistant Staphylococcus aureus (MRSA) screening culture - 01:20 Methicillin resistant Staphylococcus aureus (MRSA) screening culture NEG NRG Complete blood count (CBC) with automated white blood cell (WBC) differential - 10/18/16 03:50 Blood leukocytes automated count (number/volume) 5.4 10*3/ uL 4.3-11.0 Blood erythrocytes automated count (number/volume) 4.50 10*6 /uL 4.35-5.85 Venous blood hemoglobin measurement (mass/volume) 14.0 g/dL 13.3-17.7 Blood hematocrit (volume fraction) 40 % 40-54 Automated erythrocyte mean corpuscular volume 88 [foz_us] 80-99 Automated erythrocyte mean corpuscular hemoglobin (mass per erythrocyte) 31 pg 25-34 Automated erythrocyte mean corpuscular hemoglobin concentration measurement ( mass/volume) 35 g/dL 32-36 Automated erythrocyte distribution width ratio 12.8 % 10.0-14.5 Automated blood platelet count (count/volume) 208 10*3/uL 130-400 Automated blood platelet mean volume measurement 11.0 [foz_ us] 7.4-10.4 Automated blood neutrophils/100 leukocytes 58 % 42-75 Automated blood lymphocytes/100 leukocytes 27 % 12-44 Blood monocytes/100 leukocytes 10 % 0-12 Automated blood eosinophils/100 leukocytes 4 % 0-10 Automated blood basophils/100 leukocytes 0 % 0-10 Blood neutrophils automated count (number/volume) 3.1 10*3 1.8-7.8 Blood lymphocytes automated count (number/volume) 1.4 10*3 1.0-4.0 Blood monocytes automated count (number/volume) 0.6 10*3 0.0-1.0 Automated eosinophil count 0.2 10*3/uL 0.0-0.3 Automated blood basophil count (count/volume) 0.0 10*3/uL 0.0-0.1 Comprehensive metabolic panel - 10/18/16 03:50 Serum or plasma sodium measurement (moles/volume) 141 mmol/ L 135-145 Serum or plasma potassium measurement (moles/volume) 3.7 mmol/L 3.6-5.0 Serum or plasma chloride measurement (moles/volume) 110 mmol /L 98-107 Carbon dioxide 21 mmol/L 21-32 Serum or plasma anion gap determination (moles/volume) 10 mmol/L 5-14 Serum or plasma urea nitrogen measurement (mass/volume) 13 mg/dL 7-18 Serum or plasma creatinine measurement (mass/volume) 0.82 mg /dL 0.60-1.30 Serum or plasma urea nitrogen/creatinine mass ratio 16 NRG Serum or plasma creatinine measurement with calculation of estimated glomerular filtration rate > NRG Serum or plasma glucose measurement (mass/volume) 126 mg/dL 70-105 Serum or plasma calcium measurement (mass/volume) 8.4 mg/dL 8.5-10.1 Serum or plasma total bilirubin measurement (mass/volume) 0.4 mg/dL 0.1-1.0 Serum or plasma alkaline phosphatase measurement (enzymatic activity/volume) 64 U/L 40-136 Serum or plasma aspartate aminotransferase measurement (enzymatic activity/ volume) 44 U/L 5-34 Serum or plasma alanine aminotransferase measurement (enzymatic activity/volume ) 44 U/L 0-55 Serum or plasma protein measurement (mass/volume) 5.5 g/dL 6.4-8.2 Serum or plasma albumin measurement (mass/volume) 3.8 g/dL 3.2-4.5 Serum or plasma phosphate measurement (mass/volume) - 10/18/16 03:50 Serum or plasma phosphate measurement (mass/volume) 4.3 mg/ dL 2.3-4.7 Magnesium - 10/18/16 03:50 Magnesium 2.2 mg/dL 1.8-2.4 Serum or plasma creatine kinase measurement (enzymatic activity/volume) - 10/18 03:50 Serum or plasma creatine kinase measurement (enzymatic activity/volume) 1043 U/L 30-200 Serum or plasma creatine kinase MB measurement (enzymatic activity/volume) - 03:50 Serum or plasma creatine kinase MB measurement (enzymatic activity/volume) 6.5 ng/mL <6.6 Serum or plasma creatine kinase measurement (enzymatic activity/volume) - 10/18 08:28 Serum or plasma creatine kinase measurement (enzymatic activity/volume) 896 U/L 30-200 Encounters ACCT No. Visit Date/Time Discharge Status Pt. Type Provider Facility Loc./Unit Complaint [id number] 11/20/2016 17:46:00 2016 18:53:00 DIS Outpatient ANDREEA HUERTA [facility] ER HEAD INJ [id number] 10/18/2016 00:31:00 2016 15:00:00 DIS Outpatient ROHIT CHERY, SHANNAN Gomez [facility] ICU NEW ONSET SEIZURE -LIKE ACTIVITY [id number] 05/24/2015 21:36:00 2014 22:32:00 DIS Emergency AMY SCHMITZ MD [facility] ER [id number] 09/11/2014 01:52:00 2014 13:35:00 DIS Inpatient ISIDRO CHERY, IZA Green [facility] ICU
== END 2016-11-20 18:53 | disposition home or self-care (01) ==
LOC: EDUNIT# 17:45 → ER 17:46
DX: S06.0X0A Concussion without loss of consciousness, initial encounter (principal); W03.XXXA Other fall on same level due to collision with another person, initial encounter; Y93.61 Activity, american tackle football; Y99.8 Other external cause status
CPT/HCPCS: 70450; 99282

== ENCOUNTER 2017-12-05 03:37 | Emergency (ER) | payer OTHER, MEDICAID ==
[~2017-12-05] VITALS: Ht 167.6 cm; Wt 95.3 kg
[2017-12-05] MEDS ORDERED: LISD10TA PO (03:49)
[2017-12-05] MEDS ORDERED: PRD20T PO (04:06)
--- NOTE | 2017-12-05 04:06 | ED Abdominal Pain ---
General Chief Complaint: Abdominal/GI Problems Stated Complaint: AB PAIN Nursing Triage Note: upper abdominal pain Sepsis Screen: No Definite Risk Source of Information: Patient, Spouse Exam Limitations: No Limitations History of Present Illness Date Seen by Provider: Dec 05, 2017 Time Seen by Provider: 03:50 Initial Comments The patient presents to the ER by private conveyance with a chief complaint that he was woke up this morning with a sharp spasming pain in his midepigastric region. He did not have a burning characteristic to it. It lasted for about 10-15 minutes still he got to the ER to have it checked out. He says it was severe and caused him to double over. He's having no fevers chills nausea vomiting over he has had a cold with cough, runny nose in the last week. He does not have a history of asthma. He does not regularly smoke but he did have a cigar 2 days ago. He does not drink alcohol or use recreational drugs. He has no surgical or significant medical history. There is no trauma. The pain has resolved on its own and he has not taken anything for it. Allergies and Home Medications Allergies Uncoded Allergies: tahmina (Allergy, Severe, 09/11/14) [email or web address] (Allergy, Severe, 09/11/14) Patient Home Medication List Home Medication List Reviewed: Yes Review of Systems Constitutional: No chills, No diaphoresis EENTM: No Blurred Vision, No Double Vision Respiratory: Cough, Shortness of Air Cardiovascular: Denies Chest Pain, Denies Edema, Denies Irregular Heart Rate Gastrointestinal: See HPI; Denies Abdomen Distended; Abdominal Pain; Denies Constipated, Denies Diarrhea, Denies Nausea Genitourinary: Denies Discharge, Denies Drainage Musculoskeletal: No back pain, No joint pain Past [id number] Hx Patient Social History Alcohol Use: Denies Use Recreational Drug Use: No Smoking Status: Current Someday Smoker Type Used: Cigars 2nd Hand Smoke Exposure: No Recent Foreign Travel: No Contact w/Someone Who Travel: No Recent Infectious Disease Expo: No Recent Hopitalizations: No Immunizations Up To Date Tetanus Booster (TDap): Less than 5yrs PED Vaccines UTD: Yes Seasonal Allergies Seasonal Allergies: No Past Medical History Surgeries: Yes (hernia, Cyst removal, breast reduction) Abdominal Respiratory: No Cardiac: No Neurological: No Reproductive Disorders: No Sexually Transmitted Disease: No Gastrointestinal: Yes Abdominal Hernia Musculoskeletal: No Endocrine: No Cancer: No Psychosocial: No Integumentary: No Blood Disorders: No Family Medical History No Pertinent Family Hx Physical Exam Vital Signs Vital Signs - First Documented 12/05/17 03:49 Temp 97.7 Pulse 62 Resp 16 B/P (MAP) 126/81 (96) Pulse Ox 99 O2 Delivery Room Air Capillary Refill : Less Than 3 Seconds General Appearance: WD/WN, no apparent distress HEENT: PERRL/EOMI, normal ENT inspection, TMs normal, pharynx normal, other ( clear rhinorrhea) Neck: non-tender, supple, normal inspection Respiratory: chest non-tender, lungs clear, normal breath sounds, no respiratory distress, no accessory muscle use Cardiovascular: normal peripheral pulses, regular rate, rhythm Gastrointestinal: normal bowel sounds, soft, tenderness (mild tenderness to deep palpation in the midepigastric region up and under the ribs along the diaphragm.) Extremities: non-tender, normal inspection, normal capillary refill Neurologic/Psychiatric: alert, normal mood/affect, oriented x 3 Progress/Results/Core Measures Vital Signs/I&O 12/05/17 03:49 Temp 97.7 Pulse 62 Resp 16 B/P (MAP) 126/81 (96) Pulse Ox 99 O2 Delivery Room Air Blood Pressure Mean: 96 Progress Note : Time: 04:02 Progress Note Given his recent cough and cold and now with a spasming sharp pain of what appears to be the region of the diaphragm is less likely that this short lived self resolving pain is due to GERD, PUD, pancreatitis. It is more likely that it is related to an diaphragmatic spasm. His pain is recuperated on deep inspiration. His lungs sound clear. It's likely he's having pleurisy and will benefit from some NSAIDs and possibly steroids. However in addition to this am going to have him start ranitidine twice a day and follow-up in the next couple weeks with [facility]. We have given him return precautions should he develop fevers, nausea or other worrisome symptoms. We have offered a workup to include chest x-ray and blood draw but since his pain is resolved patient is satisfied with our explanation and wants to trial some medications outpatient and follow-up in the clinic. Departure Impression Primary Impression: Pleurisy Disposition: HOME, SELF-CARE Condition: Improved Departure-Patient Inst. Decision time for Depature: 04:04 Referrals: [facility] (PCP/Family) Primary Care Physician Patient Instructions: Pleuritic Chest Pain (DC) Add. Discharge Instructions: For the next 2 weeks [id number] please take 2 capsules of Naprosyn twice a day. If your pain comes back you can add 1000 mg of Tylenol every 8 hours as needed. If you begin to have fevers, chills, nausea or other worrisome symptoms you should return to [facility]. We will also start you on some prednisone take 2 tablets daily for the next 5 days and expect them to kick in about 12-24 hours. Finally while you're on the Naprosyn I would recommend you be taking ranitidine 150 mg or famotidine 20 mg twice a day to protect the lining of your stomach. All discharge instructions reviewed with patient and/or family. Voiced understanding. Scripts Prednisone (Prednisone) 20 Mg Tab 40 MG PO DAILY for 5 Days, #10 TAB 0 Refills Prov: KRISSY LION 12/05/17 Copy Copies To 1: SHANNAN BEE MD, TITUS J Dec 05, 2017 04:06
[2017-12-05 04:16] VITALS: BP 126/81
== END 2017-12-05 04:11 | disposition home or self-care (01) ==
LOC: EDUNIT# 03:37 → ER 03:40
DX: R09.1 Pleurisy (principal); F17.290 Nicotine dependence, other tobacco product, uncomplicated; Z91.018 Allergy to other foods; Z91.013 Allergy to seafood; Z87.19 Personal history of other diseases of the digestive system
CPT/HCPCS: 99282